=== PATIENT | male | born 1935 | race American Indian/Alaskan Native ===

== ENCOUNTER 2017-06-03 10:42 | Observation (INO) | payer OTHER ==
[2017-06-03 11:54] LABS: BASO % 0.7 % (0-2.0); EOS % 3.1 % (0-4.5); HEMATOCRIT 48.5 % (35.4-49); HEMOGLOBIN 15.8 GM/dL (11.7-16.9); MCHC 32.5 g/dl (32.0-35.9); MEAN CELL VOLUME 95.4 fl (80-96); MEAN PLT VOLUME 9.2 fl (7.5-11.1); MONO % 10.5 % (3.8-10.2); NEUT % 51.7 % (42.8-82.8); PLATELET COUNT 197 K/MM3 (134-434); RBC 5.09 M/mm3 (4.00-5.60); RDW 14.2 % (11.9-15.9); WHITE BLOOD COUNT 6.3 K/mm3 (4.0-10.0)
--- NOTE | 2017-06-03 12:08 | PDOC ---
History of Present Illness <Eleazar London - Last Filed: 06/03/17 13:56> - General History Source: Patient (via cardiovascular technician phone), Significant Other Exam Limitations: Clinical Condition - History of Present Illness Initial Comments: 06/03/17 12:04 82-year-old male with history of hypertension, cardiac disease presents brought in by significant other via EMS with episode of altered mental status and generalized weakness this morning. Patient was in his usual high functioning state, last night had some difficulty sleeping so he took a sleep aid, awoke this morning around 9 AM with some generalized weakness and confusion, prompting him to call his significant other. She found him at 9:30 AM sitting by his bed, he did not recognize her or himself, did not know where he was, and so she activated EMS. There were notes of generalized weakness and inability to stand, but there was no facial asymmetry or unilateral weakness or dysarthria. In route, the patient's clinical condition improved and he is now back to baseline, without any complaints. Denies any syncope, denies any headache or chest pain, denies any recent infections or dehydration. Denies any recent changes to his medications. <Noble Conway - Last Filed: 06/03/17 14:35> - General Stated Complaint: WEAKNESS Time Seen by Provider: 06/03/17 11:30 Past History <Eleazar London - Last Filed: 06/03/17 13:56> <Noble Conway - Last Filed: 06/03/17 14:35> - Past Medical History Allergies/Adverse Reactions: Allergies Allergy/AdvReac Type Severity Reaction Status Date / Time No Known Allergies Allergy Verified 06/03/17 11:38 Review of Systems - Review of Systems Constitutional: No: Chills, Fever HEENTM: No: Recent change in vision, Nose Congestion, Throat Swelling Respiratory: No: Cough, Shortness of Breath Cardiac (ROS): No: Chest Pain, Edema, Syncope ABD/GI: No: Diarrhea, Nausea, Vomiting : No: Dysuria, Frequency Neurological: Yes: See HPI. No: Headache All Other Systems: Reviewed and Negative <Noble Conway - Last Filed: 06/03/17 14:35> *Physical Exam - Vital Signs Last Vital Signs Temp Pulse Resp BP Pulse Ox 98.2 F 70 20 164/103 95 06/03/17 12:18 06/03/17 13:30 06/03/17 13:30 06/03/17 13:30 06/03/17 12:18 <Eleazar London - Last Filed: 06/03/17 13:56> - Physical Exam Comments: 06/03/17 12:06 vital signs stable. GENERAL: The patient is awake, alert, and fully oriented, in no acute distress. HEAD: Normal with no signs of trauma. EYES: PERRL, EOMI, sclera anicteric, conjunctiva clear with no pallor. ENT: oropharynx clear without exudates. Moist mucous membranes. NECK: Normal range of motion, supple without lymphadenopathy, JVD, or masses. LUNGS: Breath sounds equal, clear to auscultation bilaterally. No wheeze/ crackles. HEART: Regular rate and rhythm, normal S1 and S2 without murmur or rub. ABDOMEN: Soft/nontender/nondistended. BS wnl. No guarding or rebound. No palpable masses. No hepatosplenomegaly. EXTREMITIES: Normal range of motion, no edema. 2+ distal pulses. No cords, erythema, or tenderness. NEUROLOGICAL: Mental status: The patient is alert and oriented x3. Cranial nerves: Cranial nerves II through XII are intact Motor: The upper extremities are 5 over 5 in all muscle groups. The lower extremities are 5 over 5 in all muscle groups. No pronator drift. Sensation: Sensation is intact to light touch throughout. Cerebellar: Duztfw-vfaqnz-ngwj is normal in both upper extremities. Heel-knee- delgadillo is normal in both lower extremities. Reflexes: 2+ and symmetric in the upper and lower extremities. Gait: Deferred. PSYCH: Normal mood, normal affect. SKIN: Warm, Dry, no rashes or lesions noted. <Noble Conway - Last Filed: 06/03/17 14:35> Heart Score/ECG Review #1 ECG reviewed & interpreted by me at: 12:34 General ECG Interpretation: Sinus Rhythm, Normal Rate (64), Normal Intervals ( qtc 429, LVH), No acute ischemic changes (nonspecific t wave change V3V4) <Noble Conway - Last Filed: 06/03/17 14:35> ED Treatment Course - LABORATORY CBC & Chemistry Diagram: 06/03/17 11:37 06/03/17 11:37 - ADDITIONAL ORDERS Additional order review: Laboratory Results 06/03/17 06/03/17 06/03/17 11:37 11:37 11:37 PT with INR INR Sodium 143 Potassium 4.2 Chloride 109 H Carbon Dioxide 26 Anion Gap 8 BUN 16 Creatinine 1.4 H Creat Clearance w eGFR 48.28 Random Glucose 105 Lactic Acid 1.3 Calcium 8.5 Total Bilirubin 1.4 H AST 33 ALT 24 Alkaline Phosphatase 83 Creatine Kinase 125 Troponin I < 0.02 Total Protein 6.9 Albumin 3.3 L Triglycerides 182 H Cholesterol 162 Total LDL Cholesterol 104 H HDL Cholesterol 36 L Blood Type Cancelled Antibody Screen Cancelled 06/03/17 11:37 PT with INR 11.40 INR 1.01 Sodium Potassium Chloride Carbon Dioxide Anion Gap BUN Creatinine Creat Clearance w eGFR Random Glucose Lactic Acid Calcium Total Bilirubin AST ALT Alkaline Phosphatase Creatine Kinase Troponin I Total Protein Albumin Triglycerides Cholesterol Total LDL Cholesterol HDL Cholesterol Blood Type Antibody Screen 06/03/17 11:37 RBC 5.09 MCV 95.4 MCHC 32.5 RDW 14.2 MPV 9.2 Neutrophils % 51.7 Lymphocytes % 34.0 Monocytes % 10.5 H Eosinophils % 3.1 Basophils % 0.7 - RADIOLOGY Radiograph Interpretation: 06/03/17 13:55 EXAM#: TYPE/EXAM: RESULT: [id number] CT/HEAD CT (STROKE) HISTORY PROVIDED: Rule out CVA TECHNIQUE: Sequential axial images were obtained from the base of the skull to the vertex. There is no evidence of acute intracranial hemorrhage, mass lesions or infarctions. There is a moderate degree of diffuse cerebral atrophy with sulcal widening and ventricular dilatation. There is no evidence of fracture or acute bony pathology. IMPRESSION: No evidence of acute intracranial pathology. Reported By: Leroy Tena MD 06/03/17 13:56 EXAM#: TYPE/EXAM: RESULT: [id number] RAD/CHEST X-RAY PORTABLE* Clinical history: Stroke. Comparison: None. Rotated and lordotic portable chest film with poor inspiratory effort shows right scoliosis, unfolding of the great vessels and mild cardiomegaly. No heart failure is seen. There is infiltrative change at the left base. Small effusion cannot be excluded. Cardiomegaly without CHF. Impression: Left basilar infiltrate. ? Small effusion. Continuing clinical and radiographic evaluation suggested. Reported By: Ron Dodson MD - Medications Given in the ED: ED Medications Discontinued Medications Generic Name Dose Route Start Last Admin Trade Name Shira PRN Reason Stop Dose Admin Aspirin 162 mg 06/03/17 13:00 06/03/17 13:25 Asa - PO 06/03/17 13:01 162 mg ONCE ONE Administration <Eleazar London - Last Filed: 06/03/17 13:56> - LABORATORY CBC & Chemistry Diagram: 06/03/17 11:37 06/03/17 11:37 - ADDITIONAL ORDERS Additional order review: 06/03/17 11:37 RBC 5.09 MCV 95.4 MCHC 32.5 RDW 14.2 MPV 9.2 Neutrophils % 51.7 Lymphocytes % 34.0 Monocytes % 10.5 H Eosinophils % 3.1 Basophils % 0.7 - RADIOLOGY Radiology Studies Ordered: Category Date Time Status HEAD CT (STROKE) [CT] Stat CT Scan 06/03/17 11:39 Ordered CHEST X-RAY PORTABLE* [RAD] Stat Radiology 06/03/17 11:40 Ordered <Noble Conway - Last Filed: 06/03/17 14:35> Medical Decision Making - Medical Decision Making 06/03/17 13:53 Phone called placed to Dr. Mejias at 1:50 pm. Case discussed with Dr. Mejias, agrees will MRI. <Eleazar London - Last Filed: 06/03/17 13:56> - Medical Decision Making 06/03/17 12:08 82-year-old male with history of hypertension presents with episode of altered mental status/near syncope this morning, generalized weakness without focal deficits on history or exam. Differential is broad, question side effects from sleep aid, question TIA, question arrhythmia. Stroke protocol initiated Check labs and EKG Will monitor overnight on telemetry for possible TIA/syncope 06/03/17 12:48 Labs are within normal limits, elevated triglycerides but normal troponin. Neurologically unchanged, we'll proceed with admission. 06/03/17 13:01 Discussed with children at bedside. ? slightly slurred speech but they wonder whether patient is just groggy, otherwise he appears at his baseline and without motor deficit. Agree with overnight monitoring, will give asa in the setting of possible TIA and normal CT head. Proceed with obs stroke admission. 06/03/17 14:33 accepted for obs stroke by Dr. Rosales, signout given to [facility] [place]. Dr. Mejias consulted, will see patient. <Noble Conway - Last Filed: 06/03/17 14:35> *DC/Admit/Observation/Transfer <Eleazar London - Last Filed: 06/03/17 13:56> - Discharge Dispostion Admit: Yes <Noble Conway - Last Filed: 06/03/17 14:35> Diagnosis at time of Disposition: Transient alteration of awareness - Discharge Dispostion Condition at time of disposition: Improved
[2017-06-03 12:22] LABS: CHLORIDE 109 mmol/L (98-107); SODIUM 143 mmol/L (136-145)
[2017-06-03 12:29] LABS: ALBUMIN 3.3 g/dl (3.4-5.0); ALK PHOS 83 U/L (45-117); ANION GAP 8 (8-16); BILIRUBIN,TOTAL 1.4 mg/dL (0.2-1.0); BLOOD UREA NITROGEN 16 mg/dL (7-18); CALCIUM 8.5 mg/dL (8.5-10.1); CHOLESTEROL 162 mg/dL (50-200); CO2 26 mmol/L (21-32); CREATININE 1.4 mg/dL (0.7-1.3); GLUCOSE,RANDOM 105 mg/dL (74-106); HDL CHOLESTEROL 36 mg/dL (40-60); LDL CHOLESTEROL (ONLY SJRH) 104 mg/dL (5-100); SGPT/ALT 24 U/L (12-78); TOT PROT 6.9 g/dl (6.4-8.2); TRIGLYCERIDES 182 mg/dL (35-160)
[2017-06-03 12:33] LABS: POTASSIUM 4.2 mmol/L (3.5-5.1); SGOT/AST 33 U/L (15-37)
[2017-06-03 12:55] LABS: INR 1.01 (0.82-1.09); PROTHROMBIN TIME (PATIENT) 11.4 SEC (9.98-11.88)
[2017-06-03] MEDS ORDERED: ASPIRIN 81 MG CHEWABLE TABLETS PO ONE (13:00)
[2017-06-03] MEDS ORDERED: ASPIRIN 81 MG CHEWABLE TABLETS ONE ×2 (13:15→13:16)
[2017-06-03] MEDS ORDERED: LOSARTAN 50MG/HCTZ 12.5MG 1 TAB (FP) PO ONE (14:43)
[2017-06-03] MEDS ORDERED: ENALAPRIL MALEATE 10 MG TABLET (FP) PO SCH (14:45)
--- NOTE | 2017-06-03 16:43 | HP ---
CHIEF COMPLAINT: altered mental status PCP: HISTORY OF PRESENT ILLNESS: Patient is an 82 year old male with a significant history of hypertension, hyperlipidemia and cardiac disease. He was brought into the ED today via EMS with an episode of AMS and generalized weakness at home this morning. As per ED records, patient took a sleep aid overnight (ambien 10mg x 2 - took total of 20mg of ambien that was , as per patient's daughter) for insomnia and woke up this morning confused, and did not know where he was and did not recognize family. He was reported to have lower ext weakness and unable to stand. Family also noted that his speech was slurred. Daughter reports patient took the Ambien in an efforts to sleep, no other intent reported. History provided by patient's daugthter as family speaks Green[place]ic primarily. In route to ER, patient conditioned appeared to have improved. On exam, he is alert and oriented, denies pain. Wants to go home. ER course was notable for: (1) Creat 1.4 (2) Lactic acid 1.3 (3) head ct, no evidence of acute ich (4) chest xray with left basilar infiltrate with small infiltrate Recent Travel: PAST MEDICAL HISTORY: hypertension, hyperlipidemia and cardiac disease. PAST SURGICAL HISTORY: Social History: Smoking: Alcohol: Drugs: Family History: Allergies No Known Allergies Allergy (Verified 06/03/17 11:38) HOME MEDICATIONS: Home Medications Medication Instructions Recorded Allopurinol [Zyloprim -] 100 mg PO DAILY 06/03/17 Aspirin [ASA -] 81 mg PO DAILY 06/03/17 Celecoxib [Celebrex] 200 mg PO 06/03/17 Cetirizine HCl [All Day Allergy] 10 mg PO 06/03/17 Esomeprazole Magnesium [Nexium 40 mg PO 06/03/17 24Hr] Linagliptin [Tradjenta] 5 mg PO 06/03/17 Metoprolol Succinate [Toprol Xl] 100 mg PO 06/03/17 Rosuvastatin Calcium [Crestor] 10 mg PO 06/03/17 Telmisartan/Hydrochlorothiazid 1 each PO 06/03/17 [Micardis Hct 80-12.5 mg Tablet] REVIEW OF SYSTEMS CONSTITUTIONAL: Absent: fever, chills, diaphoresis, generalized weakness, malaise, loss of appetite, weight change HEENT: Absent: rhinorrhea, nasal congestion, throat pain, throat swelling, difficulty swallowing, mouth swelling, ear pain, eye pain, visual changes CARDIOVASCULAR: Absent: chest pain, syncope, palpitations, irregular heart rate, lightheadedness , peripheral edema RESPIRATORY: Absent: cough, shortness of breath, dyspnea with exertion, orthopnea, wheezing, stridor, hemoptysis GASTROINTESTINAL: Absent: abdominal pain, abdominal distension, nausea, vomiting, diarrhea, constipation, melena, hematochezia GENITOURINARY: Absent: dysuria, frequency, urgency, hesitancy, hematuria, flank pain, genital pain MUSCULOSKELETAL: Absent: myalgia, arthralgia, joint swelling, back pain, neck pain SKIN: Absent: rash, itching, pallor HEMATOLOGIC/IMMUNOLOGIC: Absent: easy bleeding, easy bruising, lymphadenopathy, frequent infections ENDOCRINE: Absent: unexplained weight gain, unexplained weight loss, heat intolerance, cold intolerance NEUROLOGIC: Absent: headache, focal weakness or paresthesias, dizziness, unsteady gait, seizure, bladder or bowel incontinence PSYCHIATRIC: Absent: anxiety, depression, suicidal or homicidal ideation, hallucinations. PHYSICAL EXAMINATION Vital Signs - 24 hr 06/03/17 06/03/17 06/03/17 11:00 12:18 12:21 Temperature 98.1 F 98.2 F Pulse Rate 64 Pulse Rate [ 62 63 Apical] Respiratory 14 16 22 Rate Blood Pressure 167/99 Blood Pressure 163/96 163/96 [Right Arm] O2 Sat by Pulse 95 95 Oximetry (%) 06/03/17 06/03/17 06/03/17 12:30 13:30 15:27 Temperature Pulse Rate Pulse Rate [ 68 70 74 Apical] Respiratory 21 20 19 Rate Blood Pressure Blood Pressure 176/102 164/103 175/100 [Right Arm] O2 Sat by Pulse 97 Oximetry (%) 06/03/17 15:51 Temperature Pulse Rate Pulse Rate [ Apical] Respiratory Rate Blood Pressure Blood Pressure 144/109 [Right Arm] O2 Sat by Pulse Oximetry (%) GENERAL: Awake, alert, and fully oriented, in no acute distress. HEAD: Normal with no signs of trauma. EYES: Pupils equal, round and reactive to light, extraocular movements intact, sclera anicteric, conjunctiva clear. No lid lag. EARS, NOSE, THROAT: Ears normal, nares patent, oropharynx clear without exudates. Moist mucous membranes. NECK: Normal range of motion, supple without lymphadenopathy, JVD, or masses. LUNGS: Breath sounds equal, clear to auscultation bilaterally. No wheezes, and no crackles. No accessory muscle use. HEART: Regular rate and rhythm, normal S1 and S2 without murmur, rub or gallop. ABDOMEN: Soft, nontender, not distended, normoactive bowel sounds, no guarding, no rebound, no masses. No hepatomegaly or splenomegaly. MUSCULOSKELETAL: Normal range of motion at all joints. No bony deformities or tenderness. No CVA tenderness. UPPER EXTREMITIES: 2+ pulses, warm, well-perfused. No cyanosis. No clubbing. No peripheral edema. LOWER EXTREMITIES: 2+ pulses, warm, well-perfused. No calf tenderness. No peripheral edema. NEUROLOGICAL: Cranial nerves II-XII intact. Normal speech. Normal gait. PSYCHIATRIC: Cooperative. Good eye contact. Appropriate mood and affect. SKIN: Warm, dry, normal turgor, no rashes or lesions noted, normal capillary refill. Laboratory Results - last 24 hr 06/03/17 06/03/17 06/03/17 11:37 11:37 11:37 WBC 6.3 RBC 5.09 Hgb 15.8 Hct 48.5 MCV 95.4 MCH 31.0 MCHC 32.5 RDW 14.2 Plt Count 197 MPV 9.2 Neutrophils % 51.7 Lymphocytes % 34.0 Monocytes % 10.5 H Eosinophils % 3.1 Basophils % 0.7 PT with INR 11.40 INR 1.01 Sodium 143 Potassium 4.2 Chloride 109 H Carbon Dioxide 26 Anion Gap 8 BUN 16 Creatinine 1.4 H Creat Clearance w eGFR 48.28 Random Glucose 105 Lactic Acid Calcium 8.5 Total Bilirubin 1.4 H AST 33 ALT 24 Alkaline Phosphatase 83 Creatine Kinase 125 Troponin I < 0.02 Total Protein 6.9 Albumin 3.3 L Triglycerides 182 H Cholesterol 162 Total LDL Cholesterol 104 H HDL Cholesterol 36 L Blood Type Antibody Screen 06/03/17 06/03/17 11:37 11:37 WBC RBC Hgb Hct MCV MCH MCHC RDW Plt Count MPV Neutrophils % Lymphocytes % Monocytes % Eosinophils % Basophils % PT with INR INR Sodium Potassium Chloride Carbon Dioxide Anion Gap BUN Creatinine Creat Clearance w eGFR Random Glucose Lactic Acid 1.3 Calcium Total Bilirubin AST ALT Alkaline Phosphatase Creatine Kinase Troponin I Total Protein Albumin Triglycerides Cholesterol Total LDL Cholesterol HDL Cholesterol Blood Type Cancelled Antibody Screen Cancelled ASSESSMENT/PLAN: Patient is an 82 year old male with a significant history of hypertension, hyperlipidemia and cardiac disease. He was brought into the ED today via EMS with an episode of AMS and generalized weakness at home this morning. As per ED records, patient took a sleep aid overnight (ambien 10mg x 2 - pt took total of 20mg of ambien last night. Daughter states medication has a past expiration dated) for insomnia and woke up this morning confused, did not know where he was and did not recognize family. He was reported to have lower ext weakness and unable to stand. Family also noted that his speech was slurred. Daughter reports patient took the Ambien in an efforts to sleep, no other intent reported. History provided by patient's daughter as family speaks Green[place]ic primarily. In route to ER, patient conditioned appeared to have improved. On exam, he is alert and oriented, denies pain. Wants to go home. He denies pain, denies shortness of breath. Mental status back to baseline as per family. Imaging: EKG: SR, non specific t wave abnormality Head CT: no evidence of acute intracranial pathology Carotid doppler: no evidence of carotid stenosis Neuro: Altered mental status/Weakness/Confusion, resolved Spoke to patient's daughter via telephone, states her father has insomnia and took Ambien 20mg last night. States the Ambien pills are pills for apx 2 yrs Mental status back to baseline CT Head normal Brain MRI with contrast pending Monitor on tele Carotid ultrasound negative Seen by neuro, notes reviewed No hx of seizure or other neurological deficits On ASA and Crestor PT eval in a.m. Cardiology: Rule out cardiac component/rule out ACS Trend trops Monitor on tele Echo in a.m. Hyperlipidemia On home crestor 10mg, lipid panel noted, Crestor increased to 20mg Needs outpatient monitoring Low cholesterol diet, weight management Hypertension, BP elevated On Toprol 100mg daily On Telmisartan/HCTZ combo, NF here. sub with Diovan 320mg and HCTZ 12.5mg Will give additional dose of Toprol 25mg this evening and monitor Renal MAHOGANY, Creat 1.4 Gently hydrate overnight Repeat labs in a.m. Endocrine: Diabetes Mellitus On Trajenda home med Monitor BGMs, on Novolog SS Hmg a1c F.E.N. Fluids: NS @ 42cc/hr Electrolytes: monitor Nutrition: low sodium Prophy: DVT: LOS < 48 hours, deferred GI: on Nexium disposition: full code. Visit type - Emergency Visit Emergency Visit: Yes ED Registration Date: 06/03/17 Care time: The patient presented to the Emergency Department on the above date and was hospitalized for further evaluation of their emergent condition. - New Patient This patient is new to me today: Yes Date on this admission: 06/03/17 - Critical Care Critical Care patient: No
--- NOTE | 2017-06-03 16:56 | CON.NEURO ---
Consult - Smoking History Smoking history: Unknown if ever smoked Home Medications - Allergies Allergies/Adverse Reactions: Allergies Allergy/AdvReac Type Severity Reaction Status Date / Time No Known Allergies Allergy Verified 06/03/17 11:38 - Home Medications Home Medications: Ambulatory Orders Allopurinol [Zyloprim -] 100 mg PO DAILY 06/03/17 Aspirin [ASA -] 81 mg PO DAILY 06/03/17 Celecoxib [Celebrex] 200 mg PO 06/03/17 Cetirizine HCl [All Day Allergy] 10 mg PO 06/03/17 Esomeprazole Magnesium [Nexium 24Hr] 40 mg PO 06/03/17 Linagliptin [Tradjenta] 5 mg PO 06/03/17 Metoprolol Succinate [Toprol Xl] 100 mg PO 06/03/17 Rosuvastatin Calcium [Crestor] 10 mg PO 06/03/17 Telmisartan/Hydrochlorothiazid [Micardis Hct 80-12.5 mg Tablet] 1 each PO Physical Exam-Neuro Vital Signs: Vital Signs Temperature 98.2 F 06/03/17 12:18 Pulse Rate 74 06/03/17 15:27 Respiratory Rate 19 06/03/17 15:27 Blood Pressure 144/109 06/03/17 15:51 O2 Sat by Pulse Oximetry (%) 97 06/03/17 15:27 Labs: CBC, BMP 06/03/17 11:37 06/03/17 11:37 INR, PTT INR 1.01 (0.82-1.09) 06/03/17 11:37 Assessment/Plan cc confusion HPI 82 Year old male history of HTN, Some cardiac disease took two pills of ambien and this am he was confused. He has ct head done and it was unremarkable and now he isback to his baseline. There is no history of seizure, fever or fall or other motor weakness . Past Medical History as above NKDA Neurological Examination Alert follow command, speech is normal,able to tell his name and able to repeat eomi, pupils is reactive no motor weakness sensation is normal nih score is 0 able to swallow cthead is normal Assessment-- Most likley could be due to overdose of ambien Plan - suggest to do mri ofbrain and tia work up carotid ultrasound aspirin and statin patient can be dischareged once work up is normal Thanking you so much Manpreet Mejias MD
[2017-06-03] MEDS ORDERED: SODIUM CHLORIDE 1,000 ML IV SCH ×2 (17:15→21:45)
--- NOTE | 2017-06-03 17:32 | EKG ---
Test Reason : Blood Pressure : / mmHG Vent. Rate : 064 BPM Atrial Rate : 064 BPM P-R Int : 196 ms QRS Dur : 086 ms QT Int : 416 ms P-R-T Axes : 012 -20 -02 degrees QTc Int : 429 ms NORMAL SINUS RHYTHM MODERATE VOLTAGE CRITERIA FOR LVH, MAY BE NORMAL VARIANT NONSPECIFIC T WAVE ABNORMALITY ABNORMAL ECG NO PREVIOUS ECGS AVAILABLE Confirmed by Gian Bustillos ([id number]) on 06/03/2017 5:31:54 PM Referred By: Confirmed By:Gian Bustillos
[2017-06-03 18:07] LABS: URINE APPEARANCE CLEAR; URINE BILIRUBIN NEGATIVE (NEGATIVE); URINE BLOOD NEGATIVE (NEGATIVE); URINE COLOR YELLOW; URINE GLUCOSE (UA) NEGATIVE (NEGATIVE); URINE KETONE NEGATIVE (NEGATIVE); URINE LEUK ESTERASE NEGATIVE (NEGATIVE); URINE NITRITE NEGATIVE (NEGATIVE); URINE PROTEIN NEGATIVE (NEGATIVE); URINE UROBILINOGEN NEGATIVE mg/dL (0.2-1.0)
[2017-06-03] MEDS ORDERED: metoPROLOL SUCCINATE 25 MG TAB.SR.24H (FP) PO ONE (21:30)
[2017-06-03] MEDS ORDERED: ROSUVASTATIN CA 20 MG TABLET (FP) PO SCH (22:00)
[2017-06-03] MEDS ORDERED: ROSUVASTATIN CA 10 MG TABLET (FP) PO SCH (22:00)
[2017-06-03] MEDS: INSULIN SLIDING SCALE (NOVOLOG) 1 VIAL SQ SCH (23:22)
[2017-06-04 06:16] VITALS: BMI 25.4
[2017-06-04] MEDS: INSULIN SLIDING SCALE (NOVOLOG) 1 VIAL SQ SCH ×2 (06:57→12:33)
[2017-06-04 07:08] LABS: BASO % 0.8 % (0-2.0); EOS % 6.3 % (0-4.5); HEMATOCRIT 46.1 % (35.4-49); HEMOGLOBIN 15.2 GM/dL (11.7-16.9); LYMPH % 30.1 % (8-40); MCH 30.9 pg (25.7-33.7); MCHC 32.9 g/dl (32.0-35.9); MEAN CELL VOLUME 93.9 fl (80-96); MEAN PLT VOLUME 9.8 fl (7.5-11.1); MONO % 12.3 % (3.8-10.2); NEUT % 50.5 % (42.8-82.8); PLATELET COUNT 174 K/MM3 (134-434); RBC 4.91 M/mm3 (4.00-5.60); RDW 13.8 % (11.9-15.9); WHITE BLOOD COUNT 5.4 K/mm3 (4.0-10.0)
[2017-06-04 07:54] LABS: CHLORIDE 108 mmol/L (98-107); POTASSIUM 3.6 mmol/L (3.5-5.1); SODIUM 143 mmol/L (136-145)
[2017-06-04 08:04] LABS: ALBUMIN 3.1 g/dl (3.4-5.0); ALK PHOS 69 U/L (45-117); ANION GAP 9 (8-16); BILIRUBIN,TOTAL 1.7 mg/dL (0.2-1.0); BLOOD UREA NITROGEN 15 mg/dL (7-18); CALCIUM 8.7 mg/dL (8.5-10.1); CO2 26 mmol/L (21-32); CREATININE 1.3 mg/dL (0.7-1.3); GLUCOSE,RANDOM 89 mg/dL (74-106); SGOT/AST 20 U/L (15-37); SGPT/ALT 21 U/L (12-78); TOT PROT 6.2 g/dl (6.4-8.2)
[2017-06-04] MEDS ORDERED: PT OWN MED DRAWER 7, Y5N ONE ×2 (09:44→10:21)
[2017-06-04] MEDS ORDERED: ASPIRIN 81 MG CHEWABLE TABLETS PO SCH (10:00)
[2017-06-04] MEDS ORDERED: HYDROCHLOROTHIAZIDE 12.5 MG CAPSULE (FP) PO SCH (10:00)
[2017-06-04] MEDS ORDERED: PATIENT'S OWN MEDICATION (NON-FORMULARY) (Telmisartan/Hydrochlorothiazid [Micardis Hct 80- PO SCH (10:00)
[2017-06-04] MEDS ORDERED: CELECOXIB 200 MG CAPSULE PO SCH (10:00)
[2017-06-04] MEDS ORDERED: VALSARTAN 160 MG TABLET (UD) PO SCH (10:00)
[2017-06-04] MEDS ORDERED: ALLOPURINOL 100 MG TABLET (FP) PO SCH (10:00)
--- NOTE | 2017-06-04 14:41 | PN ---
Physical Exam: SUBJECTIVE: Patient seen and examined. He denies pain, sob. Latvian speaking OBJECTIVE: Vital Signs Period Temp Pulse Resp BP Sys/Hernandez Pulse Ox Last 24 Hr 97.4 F-98.2 F 56-74 16-20 119-175/68-109 95-98 PE Neuro: alert, awake, cn 2-12 intact Pulm: CTA anteriorly CV: s1 s2 rrr no mrg Abd: s nt nd + bs Ext: warm, no le edema Laboratory Results - last 24 hr 06/03/17 06/03/17 06/03/17 15:34 17:14 23:00 WBC RBC Hgb Hct MCV MCH MCHC RDW Plt Count MPV Neutrophils % Lymphocytes % Monocytes % Eosinophils % Basophils % Sodium Potassium Chloride Carbon Dioxide Anion Gap BUN Creatinine Creat Clearance w eGFR POC Glucometer Random Glucose Hemoglobin A1c % Calcium Magnesium Total Bilirubin AST ALT Alkaline Phosphatase Troponin I < 0.02 < 0.02 Total Protein Albumin Urine Color Yellow Urine Appearance Clear Urine pH 5.0 Ur Specific [place] 1.023 Urine Protein Negative Urine Glucose (UA) Negative Urine Ketones Negative Urine Blood Negative Urine Nitrite Negative Urine Bilirubin Negative Urine Urobilinogen Negative Ur Leukocyte Esterase Negative 06/03/17 06/04/17 06/04/17 23:21 05:35 05:35 WBC 5.4 RBC 4.91 Hgb 15.2 Hct 46.1 MCV 93.9 MCH 30.9 MCHC 32.9 RDW 13.8 Plt Count 174 MPV 9.8 Neutrophils % 50.5 Lymphocytes % 30.1 Monocytes % 12.3 H Eosinophils % 6.3 H D Basophils % 0.8 Sodium 143 Potassium 3.6 Chloride 108 H Carbon Dioxide 26 Anion Gap 9 BUN 15 Creatinine 1.3 Creat Clearance w eGFR 52.59 POC Glucometer 105 Random Glucose 89 Hemoglobin A1c % Calcium 8.7 Magnesium 2.0 Total Bilirubin 1.7 H D AST 20 D ALT 21 Alkaline Phosphatase 69 Troponin I Total Protein 6.2 L Albumin 3.1 L Urine Color Urine Appearance Urine pH Ur Specific [place] Urine Protein Urine Glucose (UA) Urine Ketones Urine Blood Urine Nitrite Urine Bilirubin Urine Urobilinogen Ur Leukocyte Esterase 06/04/17 06/04/17 06/04/17 05:35 06:57 11:26 WBC RBC Hgb Hct MCV MCH MCHC RDW Plt Count MPV Neutrophils % Lymphocytes % Monocytes % Eosinophils % Basophils % Sodium Potassium Chloride Carbon Dioxide Anion Gap BUN Creatinine Creat Clearance w eGFR POC Glucometer 91 103 Random Glucose Hemoglobin A1c % 6.0 Calcium Magnesium Total Bilirubin AST ALT Alkaline Phosphatase Troponin I Total Protein Albumin Urine Color Urine Appearance Urine pH Ur Specific [place] Urine Protein Urine Glucose (UA) Urine Ketones Urine Blood Urine Nitrite Urine Bilirubin Urine Urobilinogen Ur Leukocyte Esterase Active Medications Generic Name Dose Route Start Last Admin Trade Name Shira PRN Reason Stop Dose Admin Allopurinol 100 mg 06/04/17 10:00 06/04/17 09:49 Zyloprim - PO 100 mg DAILY LOC Administration Aspirin 81 mg 06/04/17 10:00 06/04/17 09:49 Asa - PO 81 mg DAILY LOC Administration Celecoxib 200 mg 06/04/17 10:00 06/04/17 11:34 Celebrex - PO 200 mg DAILY LOC Administration Hydrochlorothiazide 12.5 mg 06/04/17 10:00 06/04/17 09:49 Hctz - PO 12.5 mg DAILY LOC Administration Sodium Chloride 1,000 mls @ 42 mls/hr 06/03/17 21:45 06/03/17 23:18 Normal Saline - IV 42 mls/hr ASDIR LOC Administration Insulin Aspart 1 vial 06/03/17 22:00 06/04/17 12:33 Novolog Vial Sliding Scale - SQ Not Given ACHS [facility] Protocol Metoprolol Succinate 100 mg 06/04/17 10:00 06/04/17 09:49 Toprol Xl - PO 100 mg DAILY LOC Administration Rosuvastatin Calcium 20 mg 06/03/17 22:00 06/03/17 23:17 Crestor - PO 10 mg HS LOC Administration Valsartan 320 mg 06/04/17 10:00 06/04/17 09:49 Diovan - PO 320 mg DAILY LOC Administration Assessment: 82 year old male with a significant history of hypertension, hyperlipidemia, CAD, gout, admitted with AMS, generalized weakness, found to have doubled ambien dose. Plan: 1. Altered mental status/Weakness/Confusion - Likely due to over medication of ambien - Resolved - CD no stenosis - ECHO nml lv size, fxn - MRI brain pending - Trops negative 2. CAD -ASA, metoprolol 100mg daily 3. HTN - Controlled - Diovan 320mg daily - HCTZ 12.5mg day 4. HLD - Increased 20mg HS 5. MAHOGANY - Resolved w/ fluids 6. DM II - Continue home meds - Hgb a1c controlled level Dispo: - MRI pending Visit type - Emergency Visit Emergency Visit: Yes ED Registration Date: 06/03/17 Care time: The patient presented to the Emergency Department on the above date and was hospitalized for further evaluation of their emergent condition. - New Patient This patient is new to me today: Yes Date on this admission: 06/04/17 - Critical Care Critical Care patient: No
[2017-06-04 15:04] VITALS: BP 141/87; PULSE 64; TEMP 98.6
--- NOTE | 2017-06-04 15:17 | DS ---
Physical Exam: SUBJECTIVE: Patient seen and examined OBJECTIVE: Vital Signs Period Temp Pulse Resp BP Sys/Hernandez Pulse Ox Last 24 Hr 97.4 F-98.6 F 56-74 16-20 119-175/68-109 95-98 PHYSICAL EXAM GENERAL: The patient is awake, alert, and fully oriented, in no acute distress. HEAD: Normal with no signs of trauma. EYES: PERRL, extraocular movements intact, sclera anicteric, conjunctiva clear. ENT: Ears normal, nares patent, oropharynx clear without exudates, moist mucous membranes. NECK: Trachea midline, full range of motion, supple. LUNGS: Breath sounds equal, clear to auscultation bilaterally, no wheezes, no crackles, no accessory muscle use. HEART: Regular rate and rhythm, S1, S2 without murmur, rub or gallop. ABDOMEN: Soft, nontender, nondistended, normoactive bowel sounds, no guarding, no rebound, no hepatosplenomegaly, no masses. EXTREMITIES: 2+ pulses, warm, well-perfused, no edema. NEUROLOGICAL: Cranial nerves II through XII grossly intact. Normal speech, gait not observed. PSYCH: Normal mood, normal affect. SKIN: Warm, dry, normal turgor, no rashes or lesions noted. LABS Laboratory Results - last 24 hr 06/03/17 06/03/17 06/03/17 15:34 17:14 23:00 WBC RBC Hgb Hct MCV MCH MCHC RDW Plt Count MPV Neutrophils % Lymphocytes % Monocytes % Eosinophils % Basophils % Sodium Potassium Chloride Carbon Dioxide Anion Gap BUN Creatinine Creat Clearance w eGFR POC Glucometer Random Glucose Hemoglobin A1c % Calcium Magnesium Total Bilirubin AST ALT Alkaline Phosphatase Troponin I < 0.02 < 0.02 Total Protein Albumin Urine Color Yellow Urine Appearance Clear Urine pH 5.0 Ur Specific [place] 1.023 Urine Protein Negative Urine Glucose (UA) Negative Urine Ketones Negative Urine Blood Negative Urine Nitrite Negative Urine Bilirubin Negative Urine Urobilinogen Negative Ur Leukocyte Esterase Negative 06/03/17 06/04/17 06/04/17 23:21 05:35 05:35 WBC 5.4 RBC 4.91 Hgb 15.2 Hct 46.1 MCV 93.9 MCH 30.9 MCHC 32.9 RDW 13.8 Plt Count 174 MPV 9.8 Neutrophils % 50.5 Lymphocytes % 30.1 Monocytes % 12.3 H Eosinophils % 6.3 H D Basophils % 0.8 Sodium 143 Potassium 3.6 Chloride 108 H Carbon Dioxide 26 Anion Gap 9 BUN 15 Creatinine 1.3 Creat Clearance w eGFR 52.59 POC Glucometer 105 Random Glucose 89 Hemoglobin A1c % Calcium 8.7 Magnesium 2.0 Total Bilirubin 1.7 H D AST 20 D ALT 21 Alkaline Phosphatase 69 Troponin I Total Protein 6.2 L Albumin 3.1 L Urine Color Urine Appearance Urine pH Ur Specific [place] Urine Protein Urine Glucose (UA) Urine Ketones Urine Blood Urine Nitrite Urine Bilirubin Urine Urobilinogen Ur Leukocyte Esterase 06/04/17 06/04/17 06/04/17 05:35 06:57 11:26 WBC RBC Hgb Hct MCV MCH MCHC RDW Plt Count MPV Neutrophils % Lymphocytes % Monocytes % Eosinophils % Basophils % Sodium Potassium Chloride Carbon Dioxide Anion Gap BUN Creatinine Creat Clearance w eGFR POC Glucometer 91 103 Random Glucose Hemoglobin A1c % 6.0 Calcium Magnesium Total Bilirubin AST ALT Alkaline Phosphatase Troponin I Total Protein Albumin Urine Color Urine Appearance Urine pH Ur Specific [place] Urine Protein Urine Glucose (UA) Urine Ketones Urine Blood Urine Nitrite Urine Bilirubin Urine Urobilinogen Ur Leukocyte Esterase HOSPITAL COURSE: Date of Admission:06/03/17 Date of Discharge: 06/04/17 Discharge Summary Reason For Visit: TRANSIENT ALTERATION OF AWARENESS Current Active Problems Transient alteration of awareness (Acute) Condition: Stable - Instructions Diet, Activity, Other Instructions: Please return to the ED for any new, persistent, or worsening symptoms. Follow up with your PCP in 1 week Take home medications as directed on discharge home med list Follow up with neurologist next week for continued outpatient work up, ie: brain MRI Referrals: Manpreet Mejias MD [Staff Physician] - Disposition: RESIDENTIAL FACILITY - Home Medications Comprehensive Discharge Medication List: Ambulatory Orders Allopurinol [Zyloprim -] 100 mg PO DAILY 06/03/17 Aspirin [ASA -] 81 mg PO DAILY 06/03/17 Celecoxib [Celebrex] 200 mg PO 06/03/17 Cetirizine HCl [All Day Allergy] 10 mg PO DAILY PRN 06/03/17 Esomeprazole Magnesium [Nexium 24Hr] 40 mg PO DAILY 06/03/17 Linagliptin [Tradjenta] 5 mg PO DAILY 06/03/17 Metoprolol Succinate [Toprol Xl] 100 mg PO DAILY 06/03/17 Rosuvastatin Calcium [Crestor] 10 mg PO DAILY 06/03/17 Telmisartan/Hydrochlorothiazid [Micardis Hct 80-12.5 mg Tablet] 1 each PO DAILY 06/03/17
== END 2017-06-04 15:32 ==
LOC: JER 10:42 → JERBED 14:35 → J4S 18:58
PROVIDERS: ADMIT Internal Medicine; ATTEND Nurse Practitioner Acute Care
PROC: 3E0337Z Introduction of Electrolytic and Water Balance Substance into Peripheral Vein, Percutaneous Approach (ICD-10-PCS; principal; 2017-06-03)
DX: R40.4 Transient alteration of awareness (principal); I10 Essential (primary) hypertension; E78.5 Hyperlipidemia, unspecified; I25.10 Atherosclerotic heart disease of native coronary artery without angina pectoris; E11.9 Type 2 diabetes mellitus without complications; N17.9 Acute kidney failure, unspecified; Z79.84 Long term (current) use of oral hypoglycemic drugs; Z79.82 Long term (current) use of aspirin
CPT/HCPCS: 36415; 70450-TC; 71045-TC; 80053; 81003; 82465; 82550; 82962; 83036; 83605; 83718; 83721; 83735; 84478; 84484; 85025; 85610; 93005; 93010; 93306-TC; 93880-TC; 96360; 96361; 99285-25; G0378